=== PATIENT | female | born 1935 | race Caucasian/White ===

== ENCOUNTER → 2019-07-05 | Outpatient (CLI) | payer MEDICARE ==
[2019-07-05 08:31] LABS: BASOPHILS # (AUTO) 0.1 (0.0-0.1); BASOPHILS % 0.6 % (0.0-1.0); EOSINOPHILS # (AUTO) 0.4 (0.0-0.4); EOSINOPHILS % 4.4 % (0.0-6.0); HEMATOCRIT 32.8 % (34.2-44.1); HEMOGLOBIN 10.7 g/dL (12.0-16.0); LYMPHOCYTES # (AUTO) 1.6 (1.0-3.2); LYMPHOCYTES % 16.6 % (18.0-39.1); MEAN CORPUSCULAR HGB CONC 32.6 g/dL (31-35); MEAN CORPUSCULAR VOLUME 88.9 fL (81-99); MONOCYTES # (AUTO) 0.6 (0.2-0.8); NEUTROPHILS # (AUTO) 6.8 (2.1-6.9); NEUTROPHILS % 72.1 % (38.7-80.0); PLATELET COUNT 300 x10e3/uL (140-360); RED BLOOD COUNT 3.69 x10e6/uL (3.6-5.1); RED CELL DISTRIBUTION WIDTH 13.7 % (11.7-14.4)
[2019-07-05 08:33] LABS: BILIRUBIN,URINE NEGATIVE (NEGATIVE); CLARITY,URINE CLEAR (CLEAR); COLOR,URINE YELLOW (YELLOW); KETONES,URINE NEGATIVE (NEGATIVE); LEUKOCYTE ESTERASE ,URINE NEGATIVE (NEGATIVE); NITRITE,URINE NEGATIVE (NEGATIVE); PROTEIN,URINE DIPSTICK 2+ (NEGATIVE); URINE UROBILINOGEN 0.2 mg/dL (0.2 - 1)
[2019-07-05 08:52] LABS: ALBUMIN 3.3 g/dL (3.5-5.0); ALBUMIN/GLOBULIN RATIO 1.1 (0.8-2.0); ANION GAP 13.6 mmol/L (8-16); CALCIUM 9.6 mg/dL (8.4-10.2); CREATININE, SERUM 1.41 mg/dL (0.57-1.11); POTASSIUM 4.6 mmol/L (3.5-5.1)
--- NOTE | 2019-07-05 09:30 | Diagnostic Imaging Report ---
EXAMINATION: KNEE LEFT THREE VIEWS INDICATION: Knee pain, osteoarthritis COMPARISON: None FINDINGS: No acute fracture or dislocation. Alignment is anatomic. There are severe patellofemoral compartment predominant degenerative changes with [id number] contact and bulky osteophyte formation. No substantial joint effusion. IMPRESSION: Severe patellofemoral compartment predominant degenerative changes. No acute osseous injury. Signed by: Zafar Rangel MD on 07/05/2019 9:27 AM
--- NOTE | 2019-07-05 09:31 | Diagnostic Imaging Report ---
EXAMINATION: ELBOW LEFT COMPLETE INDICATION: Elbow pain COMPARISON: None FINDINGS: No acute fracture or dislocation. Alignment is anatomic. No joint effusion. The soft tissues appear unremarkable. IMPRESSION: No acute osseous injury. Signed by: Zafar Rangel MD on 07/05/2019 9:28 AM
[2019-07-05 09:32] LABS: CHOL/HDL RATIO 3.5 (3.0-3.6)
--- NOTE | 2019-07-05 10:53 | Diagnostic Imaging Report ---
MRI of the left shoulder without contrast. History: Shoulder pain. Decreased range of motion. Pain not responding to conservative management Comparison: None Technique: Coronal PD FS, sagital PD FS, and axial PD and PD FS. Findings: Rotator cuff: Rotator cuff tendinosis with midsubstance degeneration and mild articular sided fraying/partial tearing involving the anterior fibers of the supraspinatus tendon at the humeral insertion site. Additionally, there is infraspinatus and subscapularis tendinosis. Moderate nonspecific teres minor muscle atrophy. Osseous acromion complex: Type II acromion with mild lateral downsloping. Moderate degenerative arthrosis at the acromioclavicular joint with undersurface spurring and narrowing of the supraspinatus tendon outlet. Glenohumeral joint: Degeneration and fraying of the labrum. The glenohumeral articular cartilage surfaces are slightly thin. The humeral head is well-seated in the glenoid fossa. Biceps tendon: Intra-articular biceps tendinosis with fraying at the biceps anchor. Other findings: Negative for muscle denervation or osseous fracture. Impression: Rotator cuff tendinosis with midsubstance degeneration and mild articular sided fraying/partial tearing involving the anterior fibers of the supraspinatus tendon at the humeral insertion site. Moderate degenerative arthrosis at the acromioclavicular joint with undersurface spurring and narrowing of the supraspinatus tendon outlet. Signed by: Dr. Mango Reynolds M.D. on 07/05/2019 10:49 AM
[2019-07-05 11:37] LABS: FREE T4 (FREE THYROXINE) 1.08 ng/dL (0.8-1.8); THYROID STIMULATING HORMONE 1.753 uIU/mL (0.350-4.940)
--- NOTE | 2019-07-05 13:35 | Diagnostic Imaging Report ---
History: Cervical radiculopathy, neck and shoulder pain. Comparison studies: None Technique: Sagittal T1, T2 and IR, axial T2, T1 axial T2*GRE. Intravenous contrast: None Findings: Alignment: Straightened cervical curvature No scoliosis. Cervicomedullary junction: No abnormalities. Patent foramen magnum. Soft tissues: No T2 hyperintense inflammatory changes. Spinal cord: Focal 7 mm STIR hyperintensity in the left dorsal cord at C1-C2. Additional focal STIR hyperintense focus in the cord at C3-C4 is without definite correlate signal abnormality on the remaining pulse sequences. The cord is flattened without gross cord signal abnormality at C4-C5 due to degenerative canal stenosis as described below Vertebrae: No fractures, infection or neoplasm. Degenerative changes: C2-C3: Mildly degenerated disc. Mild bilateral foraminal stenosis due to uncovertebral and facet arthrosis. No canal stenosis. C3-C4: Mildly degenerated disc. Disc osteophyte complex with small central disc protrusion, uncovertebral arthrosis and facet arthrosis with severe right and moderate left foraminal stenosis and mild canal stenosis. C4-C5: Moderately degenerated disc. Disc ossify complex, thickened ligamenta flava, uncovertebral arthrosis and facet arthrosis with severe canal stenosis and severe right and moderate left foraminal stenosis. C5-C6: Moderately degenerated disc disc osteophyte complex, thickened ligamentum flavum and uncovertebral arthrosis with mild canal stenosis and severe bilateral foraminal stenosis. C6-C7: Mildly degenerated disc. Small asymmetric right disc osteophyte complex and uncovertebral arthrosis without significant canal or foraminal stenosis. C7-T1: Mildly degenerated disc. Bilateral facet arthrosis. No significant canal or foraminal stenosis. Incidental findings: Left thyroid lobe not visualized and could be correlated for prior left hemithyroidectomy. Incidental two T2 hyperintense nodules or cysts in the right thyroid lobe, the largest of which measures 11 mm IMPRESSION: 1. Nonspecific short segmental cord signal abnormality at C1-C2 and questionable signal abnormality at C3-C4 may be due to nonspecific demyelination or changes related to nonspecific infectious or inflammatory myelitis. 2. Degenerative changes with multilevel disc degeneration and facet arthrosis, severe canal stenosis at C4-C5 without associated gross cord signal abnormality and varying degrees of moderate to severe neural foraminal stenosis from C3 to C6. In the absence of prior imaging for comparison, recommend brain MRI without/with IV contrast and cervical spine MRI with IV contrast to further evaluate. Signed by: Dr. Sheldon Morales M.D. on 07/05/2019 1:32 PM
--- NOTE | 2019-07-08 10:20 | Diagnostic Imaging Report ---
Exam: Bone mineral density study. History: 84-year-old female Comparison: None Discussion: Evaluation of the left hip and lumbar spine was performed utilizing DEXA Hologic bone densitometer. The study is technically adequate. The patient's fracture risk is compared to an age-matched control. Left femoral neck bone mineral density: 0.918 g/cm2, T-score is 0.6, Z-score is 3.1. No previous comparison. Lumbar spine total bone mineral density: 1.489 gm/cm2, T-score is 4, Z-score is 6.8. No previous comparison. Impression: Bone mineralization by WHO Classification using T score is normal, fracture risk is low. <T score: NL = -1 or higher Osteopenia = -1 to -2.5 Osteoporosis = -2.5 or lower Z score: < - 1.5 concerning for path> Recommendations: Medical evaluation for secondary causes of low bone mineral density may be appropriate. Correlate clinically for the necessity and timing of the next bone mineral density study. National Osteoporosis Foundation recommendations: Initiate therapy to reduce fracture risk in postmenopausal women with -BMD t-scores below -2 by central DXA with no risk factors -BMD t-scores below -1.5 by central DXA with one or more risk factors (first deg relative with hip fracture, prior personal fracture, low body weight, smoking) -A prior vertebral or hip fracture AACE (Clinical Endocrinology) recommends treating the following: Postmenopausal women who have osteoporosis as diagnosed by fragility fractures or t scores -2.5 or below Postmenopausal women who have risk factors (including fh of hip fracture, low body weight, smoking, risk of falling, high bone turnover, advancing age) and borderline low BMD T scores of -1.5 or below Adequate intake of calcium (at least 1200mg/day) and vitamin D (400-800 IU/day). Regular weight bearing and muscle - strengthening exercises Avoid smoking and excessive alcohol Signed by: Jayy Marsh on 07/08/2019 10:17 AM
== END ==
LOC: DX 07:57
PROVIDERS: ATTEND Emergency Medicine
DX: M85.9 Disorder of bone density and structure, unspecified (principal); E11.65 Type 2 diabetes mellitus with hyperglycemia; M19.022 Primary osteoarthritis, left elbow; M17.9 Osteoarthritis of knee, unspecified; M54.12 Radiculopathy, cervical region; M25.512 Pain in left shoulder; E78.5 Hyperlipidemia, unspecified
CPT/HCPCS: 36415; 72141; 77080; 80053; 80061; 81003; 82044; 82570; 83036; 84439; 84443; 85025

== ENCOUNTER → 2019-08-08 | Outpatient (CLI) | payer MEDICARE ==
--- NOTE | 2019-08-08 15:04 | Diagnostic Imaging Report ---
EXAMINATION: HAND 3+ VIEWS LEFT INDICATION: Osteoarthritis COMPARISON: None FINDINGS: No acute fracture or dislocation. Alignment is anatomic. There are severe degenerative changes of the first carpometacarpal joint with [id number] contact, osteophyte formation and subchondral sclerosis and subchondral cystic changes. Mild scattered degenerative changes elsewhere. The soft tissues appear unremarkable. IMPRESSION: No acute osseous injury. Severe degenerative changes of the first CMC joint. Mild scattered degenerative changes elsewhere. Signed by: Zafar Rangel MD on 08/08/2019 3:01 PM
--- NOTE | 2019-08-08 15:23 | Diagnostic Imaging Report ---
TECHNIQUE: Magnetic resonance imaging of the LEFT ELBOW was performed WITHOUT injected contrast. HISTORY: Pain COMPARISON: None available. FINDINGS: Ligaments and tendons: The medial and lateral collateral ligament complexes are intact. The common flexor tendon group and common extensor tendon group origins at the humeral epicondyles are intact. Partial tearing of the distal biceps tendon with surrounding edema. No complete retracted tear. Ulnar nerve: Normal, and in groove. Bone and bone marrow: No focal or infiltrative bone marrow replacing abnormality. No acute fracture. Articular cartilage: No focal lesions are seen. Soft tissues: Otherwise, unremarkable. IMPRESSION: Distal biceps tendon partial tear Signed by: Dr. Fernando Huizar M.D. on 08/08/2019 3:19 PM
== END ==
LOC: MRI 13:41
PROVIDERS: ATTEND Emergency Medicine
DX: M19.042 Primary osteoarthritis, left hand (principal); M19.022 Primary osteoarthritis, left elbow

== ENCOUNTER → 2019-10-29 | Outpatient (CLI) | payer MEDICARE ==
--- NOTE | 2019-10-29 16:53 | Diagnostic Imaging Report ---
EXAMINATION: CHEST 2 VIEWS INDICATION: COPD COMPARISON: None FINDINGS: LINES/TUBES:None LUNGS:The lungs are well-inflated. Patchy airspace opacity partially silhouetting the left heart border. Right lower lung calcified granuloma. PLEURA:No pleural effusion or pneumothorax. MEDIASTINUM:The cardiomediastinal silhouette appears normal in size and shape. BONES/SOFT TISSUES:No acute osseous injury. ABDOMEN:No free air under the diaphragm. IMPRESSION: Patchy airspace opacity silhouetting the left heart border may represent lingular pneumonia in the proper clinical setting or alternatively lingular atelectasis. RECOMMENDATIONS: Follow-up chest PA and lateral radiographs in 6-8 weeks following treatment to assess resolution. Signed by: Zafar Rangel MD on 10/29/2019 4:50 PM
== END ==
LOC: RAD 15:49
PROVIDERS: ATTEND Emergency Medicine
DX: J44.9 Chronic obstructive pulmonary disease, unspecified (principal)
CPT/HCPCS: 71046

== ENCOUNTER → 2020-08-18 | Outpatient (CLI) | payer MEDICARE, OTHER | LOC: US 07:16 | PROVIDERS: ATTEND Emergency Medicine | DX: E04.9 Nontoxic goiter, unspecified (principal) | CPT/HCPCS: 76536 ==